=== PATIENT | female | born 1935 | race Caucasian/White ===

== ENCOUNTER 2023-10-08 19:37 | Inpatient (IN) | payer SELFPAY ==
[2023-10-08 20:50] LABS: #Monocytes 0.7 10x3/uL (0.0-1.1); #Neutrophils 5.3 10x3/uL (1.5-8.4); %Basophils 0.4 % (0.0-2.0); %Eosinophils 0.4 % (0.0-6.0); %Monocytes 9.9 % (0.0-10.0); %Neutrophils 78.9 % (40.0-75.0); Hematocrit 23.3 % (34.9-44.5); Hemoglobin 6.4 g/dL (12.0-15.5); Mean Corpuscular HGB CONC 27.5 g/dL (32.0-36.0); Mean Corpuscular Volume 61.8 fl (81.6-98.3); Mean Platelet Volume 10.2 fl (7.4-10.4); Platelet Count 328 10x3/uL (150-450); RBC Distribution Width 20.7 % (11.5-14.5); Red Blood Cell (RBC) Count 3.77 10x6/uL (3.90-5.03); White Blood Cell (WBC) Count 6.7 10x3/uL (3.5-10.5)
[2023-10-08 20:56] LABS: Acetaminophen Less than 10 mcg/mL (10.0-30.0); Alcohol Less than 10.0 mg/dL (Less than 10); Lipase 12 U/L (8-78); Salicylate Less than 8.0 mg/dL (15.0-30.0)
[2023-10-08 20:57] LABS: ALT (SGPT) Less than 7 U/L (8-55); AST (SGOT) 12 U/L (5-34); Albumin 2.9 g/dL (3.4-4.8); Alkaline Phosphatase 65 U/L (40-110); Anion Gap 12 mmol/L (10-20); BUN (Urea Nitrogen) 15 mg/dL (9.8-20.1); Bilirubin, Total 0.2 mg/dL (0.2-1.2); Calc. Creatinine Clearance 0 mL/min (70-130); Carbon Dioxide 25 mmol/L (23-31); Chloride 103 mmol/L (98-107); Estimated GFR 85; Globulin 2.8 g/dL (2.4-3.5); Glucose 120 mg/dL (83-110); Potassium 3.7 mmol/L (3.5-5.1); Protein, Total 5.7 g/dL (5.8-8.1); Sodium 136 mmol/L (136-145)
[2023-10-08 22:28] LABS: Anisocytosis SLIGHT = 6-15 cells (100X) (0-5/hpf); Hypochromia SLIGHT = 6-15 cells (100X) (0-5/hpf); Microcytosis SLIGHT = 6-15 cells (100X) (0-5/hpf); Poikilocytosis SLIGHT = 6-15 cells (100X) (0-5/hpf); Polychromasia SLIGHT = 2-3 cells (100X) (0-2/hpf); Schistocytes SLIGHT = 2-5 cells (100X) (0-1/hpf)
[2023-10-08 22:41] LABS: Elliptocytes SLIGHT = 2-5 cells (100X) (0-1/hpf)
[2023-10-08 22:42] LABS: Platelet Adequacy Comment Appears Adequate; Reflex for Review?? YES; Target Cells SLIGHT = 2-5 cells (100X) (0-1/hpf)
[2023-10-08] MEDS ORDERED: Acetaminophen 325 MG TAB PO PRN (23:06)
[2023-10-08] MEDS ORDERED: Senokot S 8.6-50 MG TAB PO PRN (23:06)
[2023-10-08] MEDS ORDERED: Calcium Carbonate 500 MG ChewTAB PO PRN (23:06)
[2023-10-08] MEDS ORDERED: Ondansetron PF 4 MG/2 ML Vial IVP PRN (23:06)
[2023-10-08] MEDS ORDERED: Nitroglycerin 0.4 MG TAB (25 Tab Bottle) SL PRN (23:12)
[2023-10-08] MEDS ORDERED: levETIRAcetam 500 MG TAB PO SCH (23:15)
[2023-10-08] MEDS ORDERED: Aspirin 325 mg Enteric Coated Tablet ONE (23:34)
[2023-10-08 23:38] LABS: Iron 11 ug/dL (50-170); Iron Binding Capacity, Total 238 mcg/dL (265-497)
[2023-10-08 23:47] LABS: Bilirubin Neg (Negative); Blood, Urine 10 (Negative); Glucose, Urine (Dipstick) Normal (Negative); Ketone, Urine Negative (Negative); Leukocyte Negative (Negative); Nitrite Negative (Negative); Protein, Urine (Dipstick) 15 mg/dl (Neg-Trace); Urobilinogen Normal mg/dL (Less than 2)
[2023-10-08 23:50] LABS: INR-International Normal Ratio 1.1; PTT 26.4 sec (22.0-33.0); Prothrombin Time 11.7 sec (9.5-12.1)
[2023-10-08 23:56] LABS: Ferritin 15.36 ng/mL (10-291)
[2023-10-09 00:06] LABS: Clarity Clear (Clear)
[2023-10-09 00:07] LABS: Bacteria/HPF Rare-Few HPF (None Seen); CAUTI Indications for Culture Alt mental st,lethar; RBC/HPF 0-3 HPF (0-3); Squamous Epithelial 0-3 HPF (0-3); Urine Culture Reflex No No; WBC/HPF 0-3 HPF (0-3)
[2023-10-09 00:21] LABS: Amphetamine Not Detected (NotDetected); Barbiturates Screen Not Detected (NotDetected); Benzodiazepine Screen Not Detected (NotDetected); Cocaine Metabolite Screen Not Detected (NotDetected); Methadone Not Detected (NotDetected); Methamphetamine Not Detected (NotDetected); Opiate Screen Not Detected (NotDetected); Oxycodone Screen Not Detected (NotDetected); Phencyclidine (PCP) Not Detected (NotDetected); THC/Cannabinoid Screen Not Detected (NotDetected); Tricyclic Screen Not Detected (NotDetected)
[2023-10-09 02:20] VITALS: BMI 21.6
[2023-10-09] MEDS ORDERED: levETIRAcetam 500 MG TAB PO SCH (03:15)
[2023-10-09 03:47] LABS: Troponin I 0.221 ng/mL (< 0.028)
[2023-10-09] MEDS ORDERED: Aspirin 81 mg Enteric Coated Tablet PO SCH (09:00)
[2023-10-09] MEDS ORDERED: FLU VACC QS2023(65UP)/MF59C/PF 60 MCG/0.5 ML SYRINGE IM ONE (09:00)
[2023-10-09] MEDS: levETIRAcetam 500 MG TAB PO SCH ×2 (09:43→21:24)
[2023-10-09] MEDS: traZODone HCl 50 MG TAB PO SCH (09:43)
[2023-10-09 11:18] LABS: #Eosinphils 0.1 10x3/uL (0.0-0.5); #Monocytes 0.8 10x3/uL (0.0-1.1); #Neutrophils 4.5 10x3/uL (1.5-8.4); %Basophils 0.5 % (0.0-2.0); %Eosinophils 0.9 % (0.0-6.0); %Lymphocytes 16.7 % (18.0-47.0); %Monocytes 12.1 % (0.0-10.0); %Neutrophils 69.6 % (40.0-75.0); Hematocrit 30.5 % (34.9-44.5); Hemoglobin 9.4 g/dL (12.0-15.5); Mean Corpuscular HGB CONC 30.8 g/dL (32.0-36.0); Mean Corpuscular Hemoglobin 20.9 pg (27.0-33.0); Mean Corpuscular Volume 67.8 fl (81.6-98.3); Mean Platelet Volume 9.9 fl (7.4-10.4); Platelet Count 333 10x3/uL (150-450); RBC Distribution Width 26.2 % (11.5-14.5); White Blood Cell (WBC) Count 6.5 10x3/uL (3.5-10.5)
[2023-10-09 11:38] LABS: Anisocytosis SLIGHT = 6-15 cells (100X) (0-5/hpf); Poikilocytosis SLIGHT = 6-15 cells (100X) (0-5/hpf)
[2023-10-09 11:39] LABS: Hypochromia SLIGHT = 6-15 cells (100X) (0-5/hpf); Microcytosis SLIGHT = 6-15 cells (100X) (0-5/hpf); Ovalocytes SLIGHT = 2-5 cells (100X) (0-1/hpf); Schistocytes SLIGHT = 2-5 cells (100X) (0-1/hpf)
[2023-10-09 11:47] LABS: Anion Gap 12 mmol/L (10-20); BUN (Urea Nitrogen) 11 mg/dL (9.8-20.1); Calc. Creatinine Clearance 54 mL/min (70-130); Carbon Dioxide 25 mmol/L (23-31); Chloride 108 mmol/L (98-107); Estimated GFR 87; Glucose 87 mg/dL (83-110); Potassium 4.2 mmol/L (3.5-5.1); Sodium 141 mmol/L (136-145)
[2023-10-09 17:19] LABS: Hematocrit 29.5 % (34.9-44.5); Hemoglobin 9.2 g/dL (12.0-15.5)
[2023-10-09] MEDS ORDERED: Iron Sucrose Complex 200 MG in Sodium Chloride 0.9% 100 ML IVPB SCH (17:23)
[2023-10-09] MEDS ORDERED: Atorvastatin Calcium 40 MG TAB PO SCH (21:00)
[2023-10-09] MEDS ORDERED: Donepezil HCl 5 MG TAB PO SCH (21:00)
[2023-10-09] MEDS ORDERED: Iron, Sodium Ferric Gluconate 250 MG in Sodium Chloride 0.9% 250 ML 250 ML IVPB SCH (22:30)
[2023-10-10 05:05] LABS: #Basophils 0.1 10x3/uL (0.0-0.2); #Eosinphils 0.1 10x3/uL (0.0-0.5); #Monocytes 0.8 10x3/uL (0.0-1.1); #Neutrophils 4.7 10x3/uL (1.5-8.4); %Basophils 0.8 % (0.0-2.0); %Eosinophils 1.4 % (0.0-6.0); %Lymphocytes 15.5 % (18.0-47.0); %Monocytes 11.9 % (0.0-10.0); %Neutrophils 70.1 % (40.0-75.0); Hematocrit 29.9 % (34.9-44.5); Hemoglobin 9.2 g/dL (12.0-15.5); Mean Corpuscular HGB CONC 30.8 g/dL (32.0-36.0); Mean Corpuscular Hemoglobin 20.4 pg (27.0-33.0); Mean Corpuscular Volume 66.3 fl (81.6-98.3); Mean Platelet Volume 9.8 fl (7.4-10.4); Platelet Count 335 10x3/uL (150-450); RBC Distribution Width 26.1 % (11.5-14.5); Red Blood Cell (RBC) Count 4.51 10x6/uL (3.90-5.03); White Blood Cell (WBC) Count 6.6 10x3/uL (3.5-10.5)
[2023-10-10 05:36] LABS: Anion Gap 12 mmol/L (10-20); BUN (Urea Nitrogen) 11 mg/dL (9.8-20.1); Calc. Creatinine Clearance 57 mL/min (70-130); Carbon Dioxide 24 mmol/L (23-31); Chloride 107 mmol/L (98-107); Estimated GFR 89; Glucose 76 mg/dL (83-110); Potassium 3.5 mmol/L (3.5-5.1); Sodium 139 mmol/L (136-145)
[2023-10-10 05:41] LABS: Anisocytosis SLIGHT = 6-15 cells (100X) (0-5/hpf); Platelet Adequacy Comment Appears Adequate
[2023-10-10 05:42] LABS: Hypochromia SLIGHT = 6-15 cells (100X) (0-5/hpf); Microcytosis SLIGHT = 6-15 cells (100X) (0-5/hpf); Poikilocytosis SLIGHT = 6-15 cells (100X) (0-5/hpf)
[2023-10-10 05:43] LABS: Schistocytes SLIGHT = 2-5 cells (100X) (0-1/hpf)
[2023-10-10 05:44] LABS: Elliptocytes SLIGHT = 2-5 cells (100X) (0-1/hpf)
[2023-10-10] MEDS: levETIRAcetam 500 MG TAB PO SCH (06:14)
[2023-10-10] MEDS ORDERED: Ferrous Sulfate 325 MG TAB PO SCH (08:00)
[2023-10-10] MEDS: traZODone HCl 50 MG TAB PO SCH (08:25)
[2023-10-10] MEDS ORDERED: Iron, Sodium Ferric Gluconate 250 MG in Sodium Chloride 0.9% 250 ML 250 ML IVPB SCH (09:00)
[2023-10-10] MEDS ORDERED: Glycopyrrolate 0.2 MG/ML 5 ML SYRINGE ONE (14:28)
[2023-10-10 20:01] VITALS: BP 138/71; TEMP 97.5
[2023-10-11] MEDS ORDERED: Ferrous Gluconate 324 MG TAB PO SCH (08:00)
== END 2023-10-10 17:20 | disposition home or self-care (01) | DRG 378 ==
LOC: CSHERS 19:37 → CSHTELE 23:13
PROVIDERS: ADMIT Student in an Organized Health Care Education/Training Program; ATTEND Nurse Practitioner Family
PROC: 30233N1 Transfusion of Nonautologous Red Blood Cells into Peripheral Vein, Percutaneous Approach (ICD-10-PCS; 2023-10-09)
PROC: 0W3P8ZZ Control Bleeding in Gastrointestinal Tract, Via Natural or Artificial Opening Endoscopic (ICD-10-PCS; principal; 2023-10-10)
PROC: 0D758ZZ Dilation of Esophagus, Via Natural or Artificial Opening Endoscopic (ICD-10-PCS; 2023-10-10)
DX: K25.4 Chronic or unspecified gastric ulcer with hemorrhage (principal); I24.89 Other forms of acute ischemic heart disease; I24.9 Acute ischemic heart disease, unspecified; I10 Essential (primary) hypertension; E78.5 Hyperlipidemia, unspecified; F03.90 Unspecified dementia, unspecified severity, without behavioral disturbance, psychotic disturbance, mood disturbance, and anxiety; G40.909 Epilepsy, unspecified, not intractable, without status epilepticus; D50.9 Iron deficiency anemia, unspecified; K22.2 Esophageal obstruction; K44.9 Diaphragmatic hernia without obstruction or gangrene; I25.10 Atherosclerotic heart disease of native coronary artery without angina pectoris; E78.2 Mixed hyperlipidemia; I65.23 Occlusion and stenosis of bilateral carotid arteries; R53.1 Weakness; I35.0 Nonrheumatic aortic (valve) stenosis; Z86.73 Personal history of transient ischemic attack (TIA), and cerebral infarction without residual deficits; Z79.899 Other long term (current) drug therapy; Z79.82 Long term (current) use of aspirin
CPT/HCPCS: 36415; 36430; 70450; 71045; 80048; 80053; 80306; 80307; 81001; 82607; 82728; 83540; 83550; 83690; 84443; 84484; 85025; 85060; 85610; 85730; 86850; 86900; 86901; 87040; 87086; 93005; J2916; J7050; P9016